=== PATIENT | female | born 1945 | race Caucasian/White ===

== ENCOUNTER 2017-11-16 02:13 | Emergency (ER) | payer BC ==
[~2017-11-16] VITALS: Ht 162.6 cm; Wt 56.2 kg
[2017-11-16 02:37] VITALS: BP 124/46
[2017-11-16] MEDS ORDERED: OXYCODONE W/ ACETAMINOPHEN 5/325MG TABLET PO ONE (07:15)
[2017-11-16] MEDS ORDERED: MORPHINE SULF INJ 2 MG/ML SYRINGE 1ML IM ONE (07:45)
[2017-11-16] MEDS ORDERED: ONDANSETRON ODT 4 MG TAB PO ONE (07:45)
[2017-11-16] MEDS ORDERED: MORPHINE SULFATE 4 MG/ML SYRG IV ONE (08:00)
== END 2017-11-16 08:32 | disposition home or self-care (01) ==
LOC: ER 02:20
DX: M19.012 Primary osteoarthritis, left shoulder (principal); F17.210 Nicotine dependence, cigarettes, uncomplicated
CPT/HCPCS: 73030; 96372; 99284; J2270; Q0162

== ENCOUNTER 2018-08-05 17:59 | Inpatient (IN) | payer BC ==
[~2018-08-05] VITALS: Ht 162.6 cm; Wt 55.5 kg
[2018-08-05 19:25] LABS: Basophils # (auto) 0.1 uL; Eosinophils # (auto) 0.1 uL; Monocytes # (auto) 0.4 uL; Monocytes % (auto) 8.1 % (0.0-12.0); Neutrophils # (auto) 2.5 uL; Platelet Count (auto) 355 10^3/uL (140-450); White Blood Cell 4.6 10^3/uL (4.4-10.8)
[2018-08-05 19:27] LABS: Basophils % (auto) 1.9 % (0.0-2.0); Eosinophils % (auto) 1.8 % (0.0-7.0); Hematocrit 19.2 % (36.0-46.0); Lymphocytes # (auto) 1.5 uL; Mean Corpuscular Hemoglobin 41.4 pg (28.0-32.0); Mean Corpuscular Hgb Conc. 34.2 g/dL (32.0-36.0); Mean Corpuscular Volume 121.2 fL (80.0-100.0); Neutrophils % (auto) 55.2 % (37.0-80.0); Nucleated Red Blood Cells % 0.5 %; Red Blood Cells 1.58 10^6/uL (4.0-5.20)
[2018-08-05 19:30] LABS: INR 1.03 (0.9-1.15); Partial Thromboplastin Time 25.6 sec (23.78-33.04)
[2018-08-05 19:35] LABS: Alanine Aminotransferase 42 U/L (13-56); Albumin 3.4 g/dL (3.4-5.0); Alkaline Phosphatase 65 U/L (45-117); Anion Gap 5 (5-15); Aspartate Aminotransferase 36 U/L (15-37); BUN/Creatinine Ratio 16.2; Bilirubin, Total 0.6 mg/dL (0.2-1.0); Blood Urea Nitrogen 6 mg/dL (7-18); Calcium 8.4 mg/dL (8.5-10.1); Carbon Dioxide 33 mmol/L (21-32); Chloride 101 mmol/L (98-107); GFR African American 220 mL/min; GFR Non-African American 182 mL/min; Glucose 100 mg/dL (74-106); Potassium 4.3 mmol/L (3.5-5.1); Sodium 139 mmol/L (136-145); Total Protein 6.6 g/dL (6.4-8.2)
[2018-08-05 19:38] LABS: Red Cell Distribution Width 26.1 % (11.8-14.3)
[2018-08-05 19:41] LABS: Hemoglobin 6.5 g/dL (12.2-16.2)
[2018-08-05] MEDS ORDERED: HYDR-4683 PO (20:45)
[2018-08-05] MEDS ORDERED: METH-532 PO (20:45)
[2018-08-05] MEDS ORDERED: MULT-927 PO (20:45)
[2018-08-05] MEDS ORDERED: FURO80TA3 PO (20:45)
[2018-08-05] MEDS ORDERED: POTA1TAB61 PO (20:45)
[2018-08-05] MEDS ORDERED: FERR1TAB36 PO (20:45)
[2018-08-05] MEDS ORDERED: FLUT100I IN (20:45)
[2018-08-05] MEDS ORDERED: PANT40TA2 PO (20:45)
[2018-08-05] MEDS: PANTOPRAZOLE 40 MG TAB PO SCH (21:42)
[2018-08-05] MEDS ORDERED: DOCUSATE SOD 100 MG CAP PO PRN (21:45)
[2018-08-05] MEDS ORDERED: ONDANSETRON HCL 4 MG/2 ML VIAL IV PRN (21:45)
[2018-08-05] MEDS ORDERED: ACETAMINOPHEN 325 MG TAB PO PRN (21:45)
[2018-08-05] MEDS ORDERED: TEMAZEPAM 15 MG CAP PO PRN (21:45)
[2018-08-05] MEDS ORDERED: HYDROcodone-ACET 5/325MG TAB PO SCH (22:00)
[2018-08-05 22:02] VITALS: BP 136/58
[2018-08-05 22:22] VITALS: BP 125/56
[2018-08-05 23:00] VITALS: BP_SYST 139; BP_DIAS 62; BP_DIAS 63
[2018-08-05 23:22] VITALS: BP 139/63
[2018-08-05] MEDS: METHOCARBAMOL 500 MG TAB PO SCH (23:40)
[2018-08-06] VITALS (10 sets, daily range): BP systolic 118–144; BP diastolic 42–84
[2018-08-06 00:22] LABS: Urine Bacteria FEW /hpf (None Seen); Urine Blood Negative /uL (Negative); Urine Specific Gravity 1.012 (1.001-1.035); Urine WBC 34 /hpf (0 - 5)
[2018-08-06] MEDS ORDERED: traMADol HCL 50 MG TAB PO ONE (00:45)
[2018-08-06] MEDS ORDERED: ALBUTEROL SULF 2.5 MG/0.5ML(0.5%) NEB SOLN NEB PRN (02:15)
[2018-08-06] MEDS: HYDROcodone-ACET 5/325MG TAB PO PRN ×4 (03:47→20:38)
[2018-08-06] MEDS: METHOCARBAMOL 500 MG TAB PO SCH ×3 (06:26→17:42)
[2018-08-06 06:35] LABS: Basophils # (auto) 0.1 uL; Eosinophils # (auto) 0.1 uL; Hemoglobin 8.7 g/dL (12.2-16.2); Monocytes # (auto) 0.4 uL; Neutrophils # (auto) 2.5 uL; Nucleated Red Blood Cells % 0.1 %
[2018-08-06 06:37] LABS: Basophils % (auto) 1.3 % (0.0-2.0); Eosinophils % (auto) 1.8 % (0.0-7.0); Hematocrit 25.4 % (36.0-46.0); Lymphocytes # (auto) 1.3 uL; Lymphocytes % (auto) 29.7 % (10.0-50.0); Mean Corpuscular Hemoglobin 36.5 pg (28.0-32.0); Mean Corpuscular Hgb Conc. 34.3 g/dL (32.0-36.0); Mean Corpuscular Volume 106.3 fL (80.0-100.0); Monocytes % (auto) 9.9 % (0.0-12.0); Neutrophils % (auto) 57.3 % (37.0-80.0); Platelet Count (auto) 302 10^3/uL (140-450); Red Blood Cells 2.38 10^6/uL (4.0-5.20); White Blood Cell 4.4 10^3/uL (4.4-10.8)
[2018-08-06 06:49] LABS: Red Cell Distribution Width 30.7 % (11.8-14.3)
[2018-08-06 06:52] LABS: Albumin 3.1 g/dL (3.4-5.0); BUN/Creatinine Ratio 20.7; Calcium 7.9 mg/dL (8.5-10.1); Potassium 4.6 mmol/L (3.5-5.1)
[2018-08-06 06:55] LABS: Bilirubin, Total 0.8 mg/dL (0.2-1.0); Total Protein 5.9 g/dL (6.4-8.2)
[2018-08-06] MEDS ORDERED: cefTRIAXone 1GM/10ml IVPUSH 10 ML IV SCH (09:00)
[2018-08-06] MEDS: FERROUS SULFATE 325 MG TAB PO SCH (09:11)
[2018-08-06] MEDS: FUROSEMIDE 40 MG TAB PO SCH (09:12)
[2018-08-06] MEDS: MULTIPLE VITAMINS W/ MINERALS TAB PO SCH (09:13)
[2018-08-06] MEDS: POTASSIUM CHL 10 Meq TABLET PO SCH (09:16)
[2018-08-06] MEDS: PANTOPRAZOLE 40 MG TAB PO SCH ×2 (09:19→22:18)
[2018-08-06] MEDS: FLUTICASONE PROP NASAL SPR 0.05 % (50MCG) 16GM EACHNOSTRI SCH (10:20)
[2018-08-06 12:28] LABS: % Iron Saturation 93.4 % (15-50)
[2018-08-06 17:58] LABS: Hematocrit 25.6 % (36.0-46.0)
[2018-08-06 18:00] LABS: Hemoglobin 8.8 g/dL (12.2-16.2)
[2018-08-07] MEDS: METHOCARBAMOL 500 MG TAB PO SCH ×3 (00:21→12:24)
[2018-08-07] MEDS: HYDROcodone-ACET 5/325MG TAB PO PRN ×3 (02:14→10:04)
[2018-08-07 04:50] VITALS: BP 142/68
[2018-08-07 08:00] VITALS: BP 137/59
[2018-08-07 08:09] LABS: Hematocrit 26.4 % (36.0-46.0)
[2018-08-07] MEDS: FLUTICASONE PROP NASAL SPR 0.05 % (50MCG) 16GM EACHNOSTRI SCH (10:01)
[2018-08-07] MEDS: POTASSIUM CHL 10 Meq TABLET PO SCH (10:02)
[2018-08-07] MEDS: PANTOPRAZOLE 40 MG TAB PO SCH (10:02)
[2018-08-07] MEDS: MULTIPLE VITAMINS W/ MINERALS TAB PO SCH (10:03)
[2018-08-07] MEDS: FERROUS SULFATE 325 MG TAB PO SCH (10:03)
[2018-08-07] MEDS: FUROSEMIDE 40 MG TAB PO SCH (10:04)
[2018-08-07] MEDS ORDERED: PANT40TA2 PO (13:31)
[2018-08-09 10:14] LABS: Folate (Folic Acid) > 24.00 ng/mL (5.38-24)
== END 2018-08-07 15:35 | disposition home or self-care (01) | DRG 812 ==
LOC: ER 18:06 → OVERFLOW 18:07 → CENTRAL 22:55
PROVIDERS: ADMIT Nurse Practitioner; ATTEND Internal Medicine
PROC: 30233N1 Transfusion of Nonautologous Red Blood Cells into Peripheral Vein, Percutaneous Approach (ICD-10-PCS; principal; 2018-08-05)
DX: D64.9 Anemia, unspecified (principal); N39.0 Urinary tract infection, site not specified; F17.210 Nicotine dependence, cigarettes, uncomplicated; F10.10 Alcohol abuse, uncomplicated; J44.9 Chronic obstructive pulmonary disease, unspecified; Z87.442 Personal history of urinary calculi
CPT/HCPCS: 36415; 36430; 71046; 80053; 81001; 82270; 82607; 82746; 82962; 83540; 83550; 83880; 84484; 85014; 85018; 85025; 85610; 85730; 86850; 86900; 86901; 86920; 87086; 93005; 94640; 94761; 96374; 97163; J0696

== ENCOUNTER 2019-01-20 22:53 | Inpatient (IN) | payer BC ==
[~2019-01-20] VITALS: Ht 162.6 cm; Wt 53.0 kg
[~2019-01-20 22:53] MED LIST: FERR1TAB36 PO; FLUT100I IN; FURO80TA3 PO; HYDR-4683 PO; METH-532 PO; MULT-927 PO; PANT40TA2 PO; POTA1TAB61 PO
[2019-01-21] VITALS (11 sets, daily range): BP systolic 116–144; BP diastolic 54–69
[2019-01-21 00:01] LABS: Eosinophils # (auto) 0.1 uL; Lymphocytes # (auto) 1.2 uL; Monocytes # (auto) 0.4 uL; Neutrophils # (auto) 3.7 uL; Nucleated Red Blood Cells % 0.1 %
[2019-01-21 00:02] LABS: Basophils # (auto) 0.1 uL; Eosinophils % (auto) 2.2 % (0.0-7.0); Hematocrit 15.4 % (36.0-46.0); Lymphocytes % (auto) 21.4 % (10.0-50.0); Mean Corpuscular Hemoglobin 37.8 pg (28.0-32.0); Mean Corpuscular Volume 111.2 fL (80.0-100.0); Monocytes % (auto) 7.3 % (0.0-12.0); Neutrophils % (auto) 68.1 % (37.0-80.0); Platelet Count (auto) 264 10^3/uL (140-450); Red Blood Cells 1.38 10^6/uL (4.0-5.20); White Blood Cell 5.4 10^3/uL (4.4-10.8)
[2019-01-21 00:05] LABS: Red Cell Distribution Width 28.6 % (11.8-14.3)
[2019-01-21 00:06] LABS: Hemoglobin 5.2 g/dL (12.2-16.2)
[2019-01-21 00:18] LABS: Alanine Aminotransferase 18 U/L (13-56); Albumin 2.9 g/dL (3.4-5.0); Anion Gap 5 (5-15); Aspartate Aminotransferase 17 U/L (15-37); BUN/Creatinine Ratio 24.2; Blood Urea Nitrogen 8 mg/dL (7-18); Calcium 7.9 mg/dL (8.5-10.1); Carbon Dioxide 31 mmol/L (21-32); Chloride 103 mmol/L (98-107); GFR African American 251 mL/min; GFR Non-African American 207 mL/min; Glucose 106 mg/dL (74-106); Magnesium 1.8 mg/dL (1.6-2.6); Sodium 139 mmol/L (136-145)
[2019-01-21 00:22] LABS: INR 1.02 (0.9-1.15); Partial Thromboplastin Time 23.8 sec (23.78-33.04); Prothrombin Time 10.9 sec (9.27-12.13)
[2019-01-21 00:23] LABS: Alkaline Phosphatase 80 U/L (45-117); Bilirubin, Total 0.5 mg/dL (0.2-1.0)
[2019-01-21] MEDS ORDERED: HYDROcodone-ACET 7.5/325MG TAB PO ONE (02:45)
[2019-01-21] MEDS ORDERED: METHOCARBAMOL 500 MG TAB PO ONE (02:45)
[2019-01-21 06:32] LABS: Urine Bacteria MOD /hpf (None Seen); Urine Blood Negative /uL (Negative); Urine Specific Gravity 1.013 (1.001-1.035); Urine WBC 32 /hpf (0 - 5)
[2019-01-21] MEDS ORDERED: HYDROcodone-ACET 5/325MG TAB PO PRN (07:15)
[2019-01-21] MEDS ORDERED: ACETAMINOPHEN 325 MG TAB PO PRN (07:15)
[2019-01-21] MEDS ORDERED: ONDANSETRON HCL 4 MG/2 ML VIAL IV PRN (07:15)
[2019-01-21] MEDS ORDERED: PANTOPRAZOLE 40 MG TAB PO SCH (10:00)
[2019-01-21] MEDS ORDERED: FUROSEMIDE 40 MG TAB PO SCH (10:00)
[2019-01-21 10:14] LABS: Hematocrit 24.7 % (36.0-46.0); Hemoglobin 8.5 g/dL (12.2-16.2)
[2019-01-21 10:30] LABS: % Iron Saturation 102.6 % (15-50)
--- NOTE | 2019-01-21 10:30 | NUR ---
MS admit from ER MANAN FRIAS admitted to tele/MS after SBAR received. Patient oriented to [place], primary RN, unit, room, bed, and unit policies regarding patient care and visiting hours. Patient weighed by bedscale and placed on O2 at 4L/min via nasal cannula. Encouraged to call if they need something. All questions and concerns addressed, patient verbalized understanding.
--- NOTE | 2019-01-21 12:18 | NUR ---
chaperoned Dr. Aranda into pts room
--- NOTE | 2019-01-21 15:36 | NUR ---
Discharge instructions given as ordered. Encourage to follow up with PMD as instructed. All questions and concerns addressed. Patient verbalized understanding. IV removed with catheter intact, pressure dressing applied. Patient taken to vehicle via wheelchair with all personal belongings, accompanied by staff and family member. No distress noted at time of departure.
== END 2019-01-21 15:43 | disposition home or self-care (01) | DRG 812 ==
LOC: ER 22:57 → OVERFLOW 01-21 07:20 → WEST WING 01-21 10:37
PROVIDERS: ADMIT Nurse Practitioner; ATTEND Family Medicine
PROC: 30233N1 Transfusion of Nonautologous Red Blood Cells into Peripheral Vein, Percutaneous Approach (ICD-10-PCS; principal; 2019-01-21)
DX: D64.9 Anemia, unspecified (principal); F17.210 Nicotine dependence, cigarettes, uncomplicated; I11.0 Hypertensive heart disease with heart failure; I50.9 Heart failure, unspecified; I70.0 Atherosclerosis of aorta; J44.9 Chronic obstructive pulmonary disease, unspecified; Z87.442 Personal history of urinary calculi; Z99.81 Dependence on supplemental oxygen; Z72.89 Other problems related to lifestyle; Z82.5 Family history of asthma and other chronic lower respiratory diseases; Z82.49 Family history of ischemic heart disease and other diseases of the circulatory system
CPT/HCPCS: 36415; 80053; 81001; 83540; 83550; 83735; 84484; 85014; 85018; 85025; 85610; 85730; 86850; 86900; 86901; 86920; 93005; G0378

== ENCOUNTER 2019-02-16 19:37 | Emergency (ER) | payer BC ==
[~2019-02-16] VITALS: Ht 165.1 cm; Wt 54.4 kg
[2019-02-16 22:29] LABS: Basophils # (auto) 0.1 uL; Eosinophils # (auto) 0.1 uL; Hematocrit 18.5 % (36.0-46.0); Mean Corpuscular Hgb Conc. 33.3 g/dL (32.0-36.0); Monocytes # (auto) 0.3 uL; Red Blood Cells 1.72 10^6/uL (4.0-5.20); White Blood Cell 4.1 10^3/uL (4.4-10.8)
[2019-02-16 22:32] LABS: Basophils % (auto) 1.8 % (0.0-2.0); Eosinophils % (auto) 2.7 % (0.0-7.0); Lymphocytes # (auto) 1.6 uL; Lymphocytes % (auto) 38.3 % (10.0-50.0); Mean Corpuscular Hemoglobin 35.8 pg (28.0-32.0); Mean Corpuscular Volume 107.4 fL (80.0-100.0); Monocytes % (auto) 7.8 % (0.0-12.0); Neutrophils % (auto) 49.4 % (37.0-80.0); Nucleated Red Blood Cells % 0.4 %; Platelet Count (auto) 440 10^3/uL (140-450)
[2019-02-16 22:33] LABS: Red Cell Distribution Width 29.1 % (11.8-14.3)
[2019-02-16 22:34] LABS: Hemoglobin 6.2 g/dL (12.2-16.2)
[2019-02-16 22:38] LABS: INR 1.05 (0.9-1.15); Partial Thromboplastin Time 27.8 sec (23.78-33.04); Prothrombin Time 11.2 sec (9.27-12.13)
[2019-02-16 22:41] LABS: Calcium 8.2 mg/dL (8.5-10.1); Chloride 100 mmol/L (98-107); Sodium 142 mmol/L (136-145)
[2019-02-16 22:44] LABS: Albumin 3.1 g/dL (3.4-5.0); Anion Gap 7 (5-15); BUN/Creatinine Ratio 22.2; Blood Urea Nitrogen 10 mg/dL (7-18); Carbon Dioxide 35 mmol/L (21-32); GFR African American 175 mL/min; GFR Non-African American 145 mL/min; Glucose 86 mg/dL (74-106); Magnesium 1.7 mg/dL (1.6-2.6)
[2019-02-16 22:49] LABS: Alanine Aminotransferase 22 U/L (13-56); Alkaline Phosphatase 82 U/L (45-117); Aspartate Aminotransferase 24 U/L (15-37); Bilirubin, Total 0.5 mg/dL (0.2-1.0); Total Protein 6.3 g/dL (6.4-8.2)
[2019-02-17] VITALS (12 sets, daily range): BP systolic 121–142; BP diastolic 50–76
[2019-02-17 10:27] LABS: Basophils # (auto) 0 uL; Eosinophils # (auto) 0.1 uL; Eosinophils % (auto) 1.4 % (0.0-7.0); Hematocrit 29.8 % (36.0-46.0); Lymphocytes # (auto) 0.9 uL; Lymphocytes % (auto) 21.4 % (10.0-50.0); Mean Corpuscular Hemoglobin 31.7 pg (28.0-32.0); Mean Corpuscular Hgb Conc. 33.4 g/dL (32.0-36.0); Monocytes # (auto) 0.4 uL; Neutrophils # (auto) 2.8 uL; Neutrophils % (auto) 66.2 % (37.0-80.0); Nucleated Red Blood Cells % 0.2 %; Platelet Count (auto) 344 10^3/uL (140-450); Red Blood Cells 3.14 10^6/uL (4.0-5.20); White Blood Cell 4.3 10^3/uL (4.4-10.8)
[2019-02-17 10:55] LABS: Red Cell Distribution Width 25.9 % (11.8-14.3)
== END 2019-02-17 12:14 | disposition home or self-care (01) ==
LOC: ER 19:38
DX: D64.9 Anemia, unspecified (principal); R53.1 Weakness; J44.9 Chronic obstructive pulmonary disease, unspecified; F17.210 Nicotine dependence, cigarettes, uncomplicated; Z87.442 Personal history of urinary calculi
CPT/HCPCS: 36415; 36430; 80053; 83735; 83880; 84484; 85025; 85610; 85730; 86850; 86900; 86901; 86920; 99285; J7030; P9016

== ENCOUNTER → 2019-05-31 | Outpatient (CLI) | payer BC ==
[~2019-05-31] MED LIST changes: +FERR140T3 PO; +FOLI1TAB6 PO
[2019-05-31 08:56] LABS: Basophils # (auto) 0.1 uL; Eosinophils # (auto) 0.1 uL; Eosinophils % (auto) 2.4 % (0.0-7.0); Mean Corpuscular Hgb Conc. 31.8 g/dL (32.0-36.0); Monocytes # (auto) 0.4 uL; Neutrophils # (auto) 2.6 uL; White Blood Cell 4.2 10^3/uL (4.4-10.8)
[2019-05-31 08:57] LABS: Basophils % (auto) 1.9 % (0.0-2.0); Hematocrit 19.1 % (36.0-46.0); Lymphocytes # (auto) 1.1 uL; Lymphocytes % (auto) 25.5 % (10.0-50.0); Mean Corpuscular Hemoglobin 35.4 pg (28.0-32.0); Mean Corpuscular Volume 111.5 fL (80.0-100.0); Neutrophils % (auto) 61.2 % (37.0-80.0); Nucleated Red Blood Cells % 0.2 %; Platelet Count (auto) 356 10^3/uL (140-450); Red Blood Cells 1.71 10^6/uL (4.0-5.20)
[2019-05-31 09:05] LABS: Hemoglobin 6.1 g/dL (12.2-16.2); Red Cell Distribution Width 30.8 % (11.8-14.3)
[2019-05-31 09:16] LABS: Anion Gap 9 (5-15); Blood Urea Nitrogen 10 mg/dL (7-18); Carbon Dioxide 40 mmol/L (21-32); Chloride 92 mmol/L (98-107); GFR African American 220 mL/min; Glucose 129 mg/dL (74-106); Potassium 4.1 mmol/L (3.5-5.1); Sodium 141 mmol/L (136-145)
[2019-05-31 09:17] LABS: Alanine Aminotransferase 20 U/L (13-56); Albumin 3.5 g/dL (3.4-5.0); Aspartate Aminotransferase 22 U/L (15-37); Calcium 8.7 mg/dL (8.5-10.1); GFR Non-African American 181 mL/min
[2019-05-31 09:19] LABS: Alkaline Phosphatase 71 U/L (45-117); Bilirubin, Total 0.9 mg/dL (0.2-1.0)
[2019-05-31 09:26] LABS: Ferritin > 1650.0 ng/mL (10-322)
[2019-05-31 09:27] LABS: Folate (Folic Acid) > 24.00 ng/mL (5.38-24)
[2019-05-31 09:30] LABS: % Iron Saturation 95.3 % (15-50)
== END | disposition home or self-care (01) ==
LOC: LAB 08:37
PROVIDERS: ATTEND Internal Medicine
DX: D50.8 Other iron deficiency anemias (principal)
CPT/HCPCS: 36415; 80053; 82607; 82728; 82746; 83540; 83550; 85025

== ENCOUNTER 2019-07-04 11:29 | Inpatient (IN) | payer BC ==
[~2019-07-04] VITALS: Ht 165.1 cm; Wt 52.0 kg
[2019-07-04] VITALS (7 sets, daily range): BP systolic 105–115; BP diastolic 42–61
[~2019-07-04 11:29] MED LIST changes: -FERR1TAB36 PO; -HYDR-4683 PO; +HYDR-4833 PO
[2019-07-04 12:36] LABS: Basophils # (auto) 0.1 uL; Basophils % (auto) 1.3 % (0.0-2.0); Monocytes # (auto) 0.4 uL; Neutrophils # (auto) 2.7 uL; White Blood Cell 4.3 10^3/uL (4.4-10.8)
[2019-07-04 12:39] LABS: Eosinophils # (auto) 0 uL; Hematocrit 16.7 % (36.0-46.0); Lymphocytes # (auto) 1.2 uL; Lymphocytes % (auto) 27.4 % (10.0-50.0); Mean Corpuscular Hemoglobin 34.3 pg (28.0-32.0); Mean Corpuscular Hgb Conc. 33.6 g/dL (32.0-36.0); Mean Corpuscular Volume 101.9 fL (80.0-100.0); Monocytes % (auto) 8.4 % (0.0-12.0); Neutrophils % (auto) 61.9 % (37.0-80.0); Nucleated Red Blood Cells % 0.4 %; Platelet Count (auto) 314 10^3/uL (140-450); Red Blood Cells 1.64 10^6/uL (4.0-5.20)
[2019-07-04 12:49] LABS: Alanine Aminotransferase 14 U/L (13-56); Albumin 3.1 g/dL (3.4-5.0); Anion Gap 7 (5-15); Aspartate Aminotransferase 20 U/L (15-37); BUN/Creatinine Ratio 20.6; Blood Urea Nitrogen 7 mg/dL (7-18); Calcium 8.4 mg/dL (8.5-10.1); Carbon Dioxide 37 mmol/L (21-32); Chloride 95 mmol/L (98-107); GFR African American 242 mL/min; GFR Non-African American 200 mL/min; Glucose 118 mg/dL (74-106); Potassium 3.9 mmol/L (3.5-5.1); Sodium 139 mmol/L (136-145)
[2019-07-04 12:54] LABS: Alkaline Phosphatase 88 U/L (45-117); Bilirubin, Total 0.5 mg/dL (0.2-1.0)
[2019-07-04 13:13] LABS: Hemoglobin 5.6 g/dL (12.2-16.2); Red Cell Distribution Width 28.9 % (11.8-14.3)
[2019-07-04] MEDS ORDERED: NITROGLYCERIN 0.4 MG SL TAB SL PRN (13:30)
[2019-07-04] MEDS ORDERED: MORPHINE SULF INJ 2 MG/ML SYRINGE 1ML IV PRN ×2 (13:30)
[2019-07-04] MEDS ORDERED: ONDANSETRON HCL 4 MG/2 ML VIAL IV PRN (13:30)
[2019-07-04] MEDS ORDERED: FUROSEMIDE 20 MG/2 ML VIAL IV ONE (13:45)
[2019-07-04] MEDS: FOLIC ACID 1 MG TAB PO SCH (14:15)
[2019-07-04] MEDS: HYDROcodone-ACET 5/325MG TAB PO PRN ×2 (15:01→21:16)
[2019-07-04 15:50] LABS: Urine Bacteria FEW /hpf (None Seen); Urine Blood Negative /uL (Negative); Urine Specific Gravity 1.011 (1.001-1.035); Urine WBC 19 /hpf (0 - 5)
[2019-07-04] MEDS: Ensure Enlive Strawberry 8oz Bottle PO SCH (18:00)
[2019-07-04] MEDS: BUDESONIDE (INHALATION) 0.5 MG/2 ML NEB NEB SCH (19:07)
[2019-07-04] MEDS: ALBUTEROL SULF 2.5 MG/0.5ML(0.5%) NEB SOLN NEB PRN (19:07)
[2019-07-04] MEDS: IPRATROPIUM BROM 0.5 MG/2.5ML INH SOL NEB PRN (19:07)
[2019-07-04] MEDS: PANTOPRAZOLE 40 MG TAB PO SCH (21:15)
[2019-07-04] MEDS ORDERED: HYDROcodone-ACET 5/325MG TAB PO PRN (22:00)
[2019-07-05 01:19] VITALS: BP 112/61
[2019-07-05 05:00] VITALS: BP 128/84
[2019-07-05] MEDS: ALBUTEROL SULF 2.5 MG/0.5ML(0.5%) NEB SOLN NEB PRN (05:46)
[2019-07-05] MEDS: IPRATROPIUM BROM 0.5 MG/2.5ML INH SOL NEB PRN (05:46)
[2019-07-05] MEDS: BUDESONIDE (INHALATION) 0.5 MG/2 ML NEB NEB SCH (05:46)
[2019-07-05 06:42] LABS: Basophils # (auto) 0 uL; Basophils % (auto) 0.7 % (0.0-2.0); Eosinophils # (auto) 0.1 uL; Hemoglobin 8.6 g/dL (12.2-16.2); Lymphocytes # (auto) 1.3 uL; Lymphocytes % (auto) 24.4 % (10.0-50.0); Mean Corpuscular Hemoglobin 31.1 pg (28.0-32.0); Mean Corpuscular Volume 94.2 fL (80.0-100.0); Monocytes # (auto) 0.5 uL; Monocytes % (auto) 9.9 % (0.0-12.0); Neutrophils # (auto) 3.5 uL; Nucleated Red Blood Cells % 0.3 %; Platelet Count (auto) 297 10^3/uL (140-450); Red Blood Cells 2.76 10^6/uL (4.0-5.20); White Blood Cell 5.5 10^3/uL (4.4-10.8)
[2019-07-05 06:48] LABS: Red Cell Distribution Width 26.6 % (11.8-14.3)
[2019-07-05 07:04] LABS: INR 1.01 (0.9-1.15); Partial Thromboplastin Time 28.9 sec (23.64-32.05)
[2019-07-05 07:09] LABS: Albumin 2.9 g/dL (3.4-5.0); BUN/Creatinine Ratio 25.8; Calcium 8.4 mg/dL (8.5-10.1)
[2019-07-05 07:12] LABS: Bilirubin, Total 0.6 mg/dL (0.2-1.0); Total Protein 6.1 g/dL (6.4-8.2)
[2019-07-05] MEDS: FOLIC ACID 1 MG TAB PO SCH (08:31)
[2019-07-05] MEDS: PANTOPRAZOLE 40 MG TAB PO SCH (08:31)
[2019-07-05] MEDS: Ensure Enlive Strawberry 8oz Bottle PO SCH ×2 (08:31→12:36)
[2019-07-05] MEDS: HYDROcodone-ACET 5/325MG TAB PO PRN ×2 (08:31→15:14)
[2019-07-05 09:00] VITALS: BP 103/53
[2019-07-05] MEDS ORDERED: FERROUS SULFATE 50 MG PO SCH (10:00)
[2019-07-05 13:15] LABS: % Iron Saturation 98.7 % (15-50)
[2019-07-05 13:20] VITALS: BP 114/50
[2019-07-05 16:59] VITALS: BP 119/61
== END 2019-07-05 18:05 | disposition hospice, home (50) | DRG 812 ==
LOC: ER 11:36 → TELE 11:37 → TELE-WESTW 18:39
PROVIDERS: ADMIT Nurse Practitioner Acute Care; ATTEND Family Medicine
PROC: 30233N1 Transfusion of Nonautologous Red Blood Cells into Peripheral Vein, Percutaneous Approach (ICD-10-PCS; principal; 2019-07-04)
DX: D64.9 Anemia, unspecified (principal); J96.10 Chronic respiratory failure, unspecified whether with hypoxia or hypercapnia; E44.1 Mild protein-calorie malnutrition; Z68.1 Body mass index [BMI] 19.9 or less, adult; J44.9 Chronic obstructive pulmonary disease, unspecified; K21.9 Gastro-esophageal reflux disease without esophagitis; I73.9 Peripheral vascular disease, unspecified; E78.00 Pure hypercholesterolemia, unspecified; E78.5 Hyperlipidemia, unspecified; F17.210 Nicotine dependence, cigarettes, uncomplicated; G89.29 Other chronic pain; I11.0 Hypertensive heart disease with heart failure; M54.5 Low back pain; I50.9 Heart failure, unspecified; Z82.49 Family history of ischemic heart disease and other diseases of the circulatory system; Z82.5 Family history of asthma and other chronic lower respiratory diseases; Z87.11 Personal history of peptic ulcer disease; Z87.442 Personal history of urinary calculi
CPT/HCPCS: 36415; 36430; 51702; 71045; 76604; 80053; 81001; 83010; 83540; 83550; 83615; 83880; 84484; 85025; 85045; 85610; 85730; 86850; 86900; 86901; 86920; 93005; 94640; 94761; 96374; G0378

== ENCOUNTER 2019-08-19 06:59 | Inpatient (IN) | payer BC ==
[2019-08-19] VITALS (8 sets, daily range): BP systolic 104–133; BP diastolic 47–61
[~2019-08-19] VITALS: Ht 165.1 cm; Wt 52.1 kg
[2019-08-19 08:27] LABS: Eosinophils # (auto) 0.1 uL; Monocytes # (auto) 0.4 uL; White Blood Cell 4.1 10^3/uL (4.4-10.8)
[2019-08-19 08:29] LABS: Basophils # (auto) 0.1 uL; Basophils % (auto) 1.7 % (0.0-2.0); Eosinophils % (auto) 2.3 % (0.0-7.0); Hematocrit 16.2 % (36.0-46.0); Lymphocytes # (auto) 1.1 uL; Lymphocytes % (auto) 26.2 % (10.0-50.0); Mean Corpuscular Hemoglobin 33.2 pg (28.0-32.0); Mean Corpuscular Hgb Conc. 32.9 g/dL (32.0-36.0); Monocytes % (auto) 10.8 % (0.0-12.0); Neutrophils # (auto) 2.4 uL; Nucleated Red Blood Cells % 0.4 %; Platelet Count (auto) 376 10^3/uL (140-450)
[2019-08-19 08:32] LABS: Hemoglobin 5.3 g/dL (12.2-16.2)
[2019-08-19 08:51] LABS: Albumin 3.6 g/dL (3.4-5.0); Calcium 8.5 mg/dL (8.5-10.1); Potassium 3.8 mmol/L (3.5-5.1)
[2019-08-19 08:55] LABS: BUN/Creatinine Ratio 29.3; Bilirubin, Total 0.6 mg/dL (0.2-1.0); Total Protein 7.2 g/dL (6.4-8.2)
[2019-08-19] MEDS ORDERED: MORPHINE SULF INJ 2 MG/ML SYRINGE 1ML IV ONE (09:15)
[2019-08-19] MEDS ORDERED: MORPHINE SULF INJ 2 MG/ML SYRINGE 1ML IV PRN (11:00)
[2019-08-19] MEDS ORDERED: NITROGLYCERIN 0.4 MG SL TAB SL PRN (11:00)
[2019-08-19] MEDS ORDERED: ACETAMINOPHEN 500 MG TAB PO PRN (11:00)
[2019-08-19] MEDS ORDERED: ONDANSETRON HCL 4 MG/2 ML VIAL IV PRN (11:00)
[2019-08-19] MEDS ORDERED: FUROSEMIDE 20 MG/2 ML VIAL IV ONE (11:30)
[2019-08-19 11:56] LABS: Urine Bacteria NONE SEEN /hpf (None Seen); Urine Blood Negative /uL (Negative); Urine Specific Gravity 1.016 (1.001-1.035); Urine WBC 7 /hpf (0 - 5)
--- NOTE | 2019-08-19 13:30 | NUR ---
WOUND CARE PHOTOS TAKEN PAPERS IN CHART.
--- NOTE | 2019-08-19 14:00 | NUR ---
RECEIVED A CALL FROM [facility] THAT PATIENT HAS CONVERTED TO A FIB. HOSPITALIST PAGED (MERARI HERMAN) AND EKG DONE.
[2019-08-19] MEDS: CLINDAMYCIN 300MG IV 50 ML IV SCH ×2 (14:28→21:27)
--- NOTE | 2019-08-19 14:30 | NUR ---
RECEIVED REPORT FROM CHINMAY MONTIEL. WILL AWAIT PATIENT.
--- NOTE | 2019-08-19 15:00 | NUR ---
SPOKE TO MERARI HERMAN, EKG READ SR WITH BBB 86 HR PER MERARI NOTHING TO WORRY ABOUT UNLESS THE HR IS OVER 110. PATIENT IS ASYMPTOMATIC AT THIS TIME NO DISTRESS NOTED. WILL CONTINUE TO MONITOR.
--- NOTE | 2019-08-19 15:15 | NUR ---
BLOOD TRANSFUSION ENDED. VS DOCUMENTED IN SPREAD SHEET.
--- NOTE | 2019-08-19 15:30 | NUR ---
ADMINISTERED LASIX LATE PER CHINMAY FALAFEL CART COOK GIVE LASIX AFTER BLOOD TRANSFUSION.
[2019-08-19] MEDS ORDERED: FLUT250M2 INH (15:38)
[2019-08-19] MEDS ORDERED: SULF400I3 PO (15:38)
[2019-08-19] MEDS ORDERED: MORP15TA PO (15:38)
[2019-08-19] MEDS ORDERED: THIA100T10 PO (15:38)
[2019-08-19] MEDS ORDERED: CLOP75TA41 PO (15:38)
--- NOTE | 2019-08-19 16:25 | NUR ---
PATIENT RECEIVED TO THE FLOOR, AWAKE ALERT AND ORIENTED. PATIENT CURRENTLY HAS BLOOD TRANSFUSING, AND IS TOLERATING WELL. INSTRUCTED THE PATIENT ON THE PLAN OF CARE AND HOW TO USE CALL LIGHT. BED LOCKED IN LOWEST POSITION WITH TWO SIDE RAILS UP AND CALL LIGHT IN REACH.
[2019-08-19] MEDS: ALBUTEROL SULF 2.5 MG/0.5ML(0.5%) NEB SOLN NEB PRN (19:14)
[2019-08-19] MEDS: IPRATROPIUM BROM 0.5 MG/2.5ML INH SOL NEB PRN (19:14)
--- NOTE | 2019-08-19 19:30 | NUR ---
Opening Shift Note Assumed care of patient, awake and alertx4. ATKA. Oxygen @ 5L via NC. No SOB noted at this time. No S/S of distress . Instructed on POC and to call for assist PRN, will continue to monitor for changes Q1hr and PRN.
[2019-08-19] MEDS: MORPHINE SULF INJ 2 MG/ML SYRINGE 1ML IV PRN (20:35)
[2019-08-19] MEDS: PANTOPRAZOLE 40 MG TAB PO SCH (21:22)
[2019-08-19] MEDS: MORPHINE SULF 15mg ER tab PO SCH ×2 (21:22→22:00)
[2019-08-19] MEDS: HYDROcodone-ACET 5/325MG TAB PO SCH (21:23)
[2019-08-20] VITALS (13 sets, daily range): BP systolic 104–118; BP diastolic 44–71
[2019-08-20] MEDS: MORPHINE SULF INJ 2 MG/ML SYRINGE 1ML IV PRN ×2 (03:07→18:16)
[2019-08-20] MEDS: HYDROcodone-ACET 5/325MG TAB PO PRN ×2 (04:09→13:54)
--- NOTE | 2019-08-20 04:30 | NUR ---
Patient was requesting a breathing treatment. Paged RT. Saturation is 100% on 5 l nc. No distress noted. Complaining of pain throughout night. Had refused her scheduled morphine last night and only took her norco. Decaf coffee brought to patient a few times through out night per her request. Waiting on lab to come draw patient to check Hgb. Asymptomatic.
[2019-08-20] MEDS: ALBUTEROL SULF 2.5 MG/0.5ML(0.5%) NEB SOLN NEB PRN ×4 (04:43→19:42)
[2019-08-20] MEDS: IPRATROPIUM BROM 0.5 MG/2.5ML INH SOL NEB PRN ×4 (04:43→19:42)
[2019-08-20 06:04] LABS: Basophils # (auto) 0 uL; Eosinophils # (auto) 0.1 uL; Monocytes # (auto) 0.3 uL; Platelet Count (auto) 371 10^3/uL (140-450); White Blood Cell 3.9 10^3/uL (4.4-10.8)
[2019-08-20 06:08] LABS: Basophils % (auto) 1.2 % (0.0-2.0); Eosinophils % (auto) 1.9 % (0.0-7.0); Hematocrit 18.8 % (36.0-46.0); Lymphocytes # (auto) 1.1 uL; Mean Corpuscular Hemoglobin 32.9 pg (28.0-32.0); Mean Corpuscular Hgb Conc. 34.7 g/dL (32.0-36.0); Mean Corpuscular Volume 94.9 fL (80.0-100.0); Monocytes % (auto) 8.3 % (0.0-12.0); Neutrophils # (auto) 2.3 uL; Neutrophils % (auto) 59.6 % (37.0-80.0); Nucleated Red Blood Cells % 0.8 %; Red Blood Cells 1.99 10^6/uL (4.0-5.20)
[2019-08-20 06:11] LABS: Red Cell Distribution Width 27.1 % (11.8-14.3)
[2019-08-20 06:14] LABS: Hemoglobin 6.5 g/dL (12.2-16.2)
--- NOTE | 2019-08-20 06:19 | NUR ---
Lab called and notified me of Hgb 6.5. Paged hospitalist. Awaiting return phone call.Patient reading in bed. No distress noted.
[2019-08-20] MEDS: CLINDAMYCIN 300MG IV 50 ML IV SCH ×3 (06:21→22:07)
[2019-08-20 06:39] LABS: Calcium 8.4 mg/dL (8.5-10.1); Potassium 4.2 mmol/L (3.5-5.1)
[2019-08-20 06:41] LABS: BUN/Creatinine Ratio 23.3
--- NOTE | 2019-08-20 06:59 | NUR ---
New order to administer PRBC's. Will endorse to day shift.
--- NOTE | 2019-08-20 08:09 | NUR ---
RECEIVED REPORT FROM JUANY ANGUIANO
--- NOTE | 2019-08-20 08:15 | NUR ---
SPOKE WITH BRITTANY IN BLOOD BANK REGARDING ORDER STATUS CHANGED TO COMPLETE FOR NEW ORDER OF PRBCS BY ER ROYA GRANADO. PER BRITTANY, IN ORDER FOR HER TO GIVE UNIT, ORDER MUST BE CHANGED TO COMPLETE FOR HER TO DISPENSE BLOOD TO FLOOR. VERIFIED WITH BIOMEDICAL EQUIPMENT TECH CHRIS, PER DULCE MARIA ORDER SHOULD BE ACTIVE OR IN PROCESS.
--- NOTE | 2019-08-20 08:30 | NUR ---
Opening Shift Note Assumed care of patient, awake and alert. No S/S of distress/SOB or pain. Instructed on POC and to call for assist PRN, will continue to monitor. Bed locked in the lowest position. Bed rails up x2. Call light in reach.
--- NOTE | 2019-08-20 09:08 | NUR ---
ORDER CLARIFICATION SPOKE WITH MERARI HERMAN. RN MEDICAL SURGICAL AWARE OF PRBC ORDER STATUS CHANGED TO COMPLETE BY BLOOD BANK. PER RN MEDICAL SURGICAL, GIVE UNIT.
[2019-08-20] MEDS: FOLIC ACID 1 MG TAB PO SCH (09:46)
[2019-08-20] MEDS: MORPHINE SULF 15mg ER tab PO SCH ×2 (09:46→22:08)
[2019-08-20] MEDS: HYDROcodone-ACET 5/325MG TAB PO SCH (09:47)
[2019-08-20] MEDS: PANTOPRAZOLE 40 MG TAB PO SCH ×2 (09:47→22:08)
[2019-08-20] MEDS: FUROSEMIDE 20 MG/2 ML VIAL IV SCH (09:47)
[2019-08-20] MEDS: ASPirin 81 mg TAB PO SCH (11:13)
[2019-08-20] MEDS: LACTULOSE 20Gm/30ML SOLN PO PRN ×2 (11:14→18:11)
--- NOTE | 2019-08-20 11:30 | NUR ---
WOUND CARE NOTE: IN TO SEE PATIENT AT THIS TIME PER WOUND CARE CONSULT REQUEST. PATIENT WAS ADMITTED TO [facility] WITH DIAGNOSIS OF ANEMIA. CURRENT MAIN SCORE IS 17. SHE IS CURRENTLY A HOSPICE PATIENT. PATIENT IS COMFORT MEASURES ONLY. SHE WAS NOTED TO HAVE WOUNDS UPON ADMIT. WOUNDS WERE PHOTOGRAPHED AT THAT TIME BY BEDSIDE NURSE FOR REFERENCE, WOUND CONSULT ORDERED. PATIENT IS NOTED TO HAVE A SMALL STAGE 3 PRESSURE ULCER TO THE SACRUM, AND A STASIS ULCER TO THE LEFT POSTERIOR CALF. PATIENT IS AWARE OF HER WOUNDS. CLEANSED WOUNDS WITH WOUND CLEANSER, PATTED DRY WITH STERILE GAUZE. APPLIED THERAHONEY TO BOTH WOUNDS, COVERING WITH OPTIFOAM GENTLE DRESSINGS. SPECIALTY AIR MATTRESS ORDERED. PATIENT TO BE PLACED, PENDING DELIVERY BY SCRIBNER MARGOT. RECOMMEND: FREQUENT TURN SCHEDULE Q 2 HOURS, PRN CONDITION PERMITS, WITH PRESSURE REDISTRIBUTION USING PILLOWS/WEDGES, DAILY/PRN DRESSING CHANGE TO SACRAL ULCER, Q 3 DAY/PRN DRESSING CHANGE TO STASIS ULCER TO LEFT CALF, SPECIALTY AIR MATTRESS, DIETARY CONSULT, SKIN/WOUND CARE PLAN, CONTINUED MONITORING BY WOUND CARE TEAM. Addendum: 08/20/19 at 9 by Daniela Hughes RN Amended: Links added.
--- NOTE | 2019-08-20 12:00 | NUR ---
CODE STATUS MD AT THE BEDSIDE SPEAKING WITH PATIENT ABOUT CODE STATUS. CODE STATUS FORM FILLED OUT BY DR. WHEELER AND PLACED IN CHART.
--- NOTE | 2019-08-20 14:50 | NUR ---
SPOKE WITH MD SPOKE WITH DR. HAND. MD AWARE THAT PATIENT HAS BEEN RUNNING SINUS RHYTHM WITH BBB AND ST DEPRESSION WITH RUNS OF A. FIB WITH RVR. NEW ORDER RECEIVED. ORDER READ BACK AND VERIFIED.
[2019-08-20 15:19] LABS: Hematocrit 22.2 % (36.0-46.0); Hemoglobin 7.9 g/dL (12.2-16.2)
--- NOTE | 2019-08-20 19:05 | NUR ---
Closing Note Patient is awake and alert. No S/S of distress/SOB or pain. Bed locked in the lowest position. Bed rails up x2. Call light in reach. Sitter at the bedside for safety. Endorsed care to night nurse.
--- NOTE | 2019-08-20 19:30 | NUR ---
Opening Shift Note Assumed care of patient, awake and alert. Seems to be anxious about wanting to go home. Wants to do EGD outpatient. Wants to be discharged in am, daughter and grandson lives with her. Instructed on POC and to call for assist PRN, will continue to monitor for changes Q1hr and PRN.
[2019-08-20] MEDS: AMIODARONE HCL 200 MG TAB PO SCH (22:08)
[2019-08-21] VITALS (7 sets, daily range): BP systolic 117–147; BP diastolic 54–63
[2019-08-21] MEDS: MORPHINE SULF INJ 2 MG/ML SYRINGE 1ML IV PRN ×3 (00:36→16:51)
[2019-08-21] MEDS: CLINDAMYCIN 300MG IV 50 ML IV SCH ×3 (06:00→23:10)
[2019-08-21] MEDS: HYDROcodone-ACET 5/325MG TAB PO PRN (06:30)
--- NOTE | 2019-08-21 06:30 | NUR ---
Patient asked me to help her write down a few questions she wanted to ask MD when he seen her today. She didnt want to forget. Still wanting to be discharged today and do EGD outpatient. Patient says she has help at home from daughter and grandson and she can get around with her walker fine with her home O2. Wrote down her questions and brought her coffee per her request. Wound dressing to her left calf clean dry and intact.
[2019-08-21] MEDS: ALBUTEROL SULF 2.5 MG/0.5ML(0.5%) NEB SOLN NEB PRN (06:42)
[2019-08-21] MEDS: IPRATROPIUM BROM 0.5 MG/2.5ML INH SOL NEB PRN (06:42)
[2019-08-21 07:17] LABS: Basophils # (auto) 0 uL; Eosinophils # (auto) 0.1 uL; Hemoglobin 7.8 g/dL (12.2-16.2); Lymphocytes # (auto) 1.4 uL; Monocytes # (auto) 0.4 uL; White Blood Cell 3.6 10^3/uL (4.4-10.8)
[2019-08-21 07:21] LABS: Basophils % (auto) 0.7 % (0.0-2.0); Eosinophils % (auto) 4.1 % (0.0-7.0); Hematocrit 21.8 % (36.0-46.0); Lymphocytes % (auto) 38.9 % (10.0-50.0); Mean Corpuscular Hemoglobin 33.5 pg (28.0-32.0); Mean Corpuscular Hgb Conc. 35.8 g/dL (32.0-36.0); Mean Corpuscular Volume 93.7 fL (80.0-100.0); Monocytes % (auto) 10.5 % (0.0-12.0); Neutrophils # (auto) 1.6 uL; Neutrophils % (auto) 45.8 % (37.0-80.0); Platelet Count (auto) 319 10^3/uL (140-450); Red Blood Cells 2.32 10^6/uL (4.0-5.20)
--- NOTE | 2019-08-21 07:22 | NUR ---
Opening Shift Note Assumed care of patient, awake and alert, watching TV in bed. No S/S of distress/SOB or pain. Instructed on POC and to call for assist PRN, call light within reach and bed in lowest position.Will continue to monitor for changes Q1hr and PRN.
[2019-08-21 07:24] LABS: INR 1.05 (0.9-1.15)
[2019-08-21 07:34] LABS: Red Cell Distribution Width 23.4 % (11.8-14.3)
[2019-08-21 07:36] LABS: Calcium 8.3 mg/dL (8.5-10.1); Potassium 4.4 mmol/L (3.5-5.1)
[2019-08-21 07:41] LABS: BUN/Creatinine Ratio 19.4
[2019-08-21] MEDS: FUROSEMIDE 20 MG/2 ML VIAL IV SCH (11:03)
[2019-08-21] MEDS: AMIODARONE HCL 200 MG TAB PO SCH ×2 (11:04→23:11)
[2019-08-21] MEDS: ASPirin 81 mg TAB PO SCH (11:04)
[2019-08-21] MEDS: PANTOPRAZOLE 40 MG TAB PO SCH ×2 (11:04→23:11)
[2019-08-21] MEDS: FOLIC ACID 1 MG TAB PO SCH (11:04)
[2019-08-21] MEDS: MORPHINE SULF 15mg ER tab PO SCH ×2 (11:05→23:11)
--- NOTE | 2019-08-21 14:43 | NUR ---
NUTRITION CONSULT/ASSESSMENT NOTES Please refer to link notes of nutrition screen form filed under the intervention section of the plan of care for further details. Est. Needs: 1550 kcal to 1850 kcal (30-35 kcal/kgBW), 52 gms to 68 gms pro (1.0-1.3 gms/kgBW for wound healing). Will continue to monitor pertinent labs and reassess nutrient need prn Thank you this consult. Addendum: 08/21/19 at [address] Amended: Links added.
--- NOTE | 2019-08-21 16:00 | NUR ---
Dr. Nielsen bedside with patient discussing plan of care.
--- NOTE | 2019-08-21 19:17 | NUR ---
Gave report to night nurse, Ramona. Ramona is aware that a unit of PRBC have been ordered and 1 hour post blood transfusion, H & H needs to be ordered.
--- NOTE | 2019-08-21 20:01 | NUR ---
Respiratory note: PT RECIEVED ON NC2L. PT SLEEPING AT THIS TIME, NO RESP DISTRESS NOTED. SPO2 ON NC2L 98%, HR 75, RR 16. BS: DIM T/O. NO PRN TX INDICATED AT THIS TIME.
--- NOTE | 2019-08-21 23:30 | NUR ---
Blood transfusion starting. Vitals WNL. Afebrile. Will monitor closely for any adverse reactions.
[2019-08-22] VITALS (7 sets, daily range): BP systolic 118–139; BP diastolic 55–76
--- NOTE | 2019-08-22 02:00 | NUR ---
Assisted to bedside commode. Patient verbalized she had a BM early early afternoon today. Still need stool sample. PRBC's infusing, no adverse reactions noted at this time. Continuing to monitor. Call light within reach.
[2019-08-22] MEDS: MORPHINE SULF INJ 2 MG/ML SYRINGE 1ML IV PRN ×2 (02:10→07:08)
--- NOTE | 2019-08-22 03:05 | NUR ---
Blood transfusion complete. No adverse reactions noted. New order for H&H ordered for 0400. Patient resting comfortably watching TV. Call light within reach
[2019-08-22 05:01] LABS: Basophils # (auto) 0.1 uL; Eosinophils # (auto) 0.1 uL; Eosinophils % (auto) 4.3 % (0.0-7.0); Hematocrit 26.6 % (36.0-46.0); Hemoglobin 9.3 g/dL (12.2-16.2); Lymphocytes # (auto) 0.9 uL; Lymphocytes % (auto) 29.5 % (10.0-50.0); Mean Corpuscular Hemoglobin 31.9 pg (28.0-32.0); Mean Corpuscular Hgb Conc. 34.8 g/dL (32.0-36.0); Mean Corpuscular Volume 91.5 fL (80.0-100.0); Monocytes # (auto) 0.1 uL; Monocytes % (auto) 4.3 % (0.0-12.0); Neutrophils # (auto) 1.8 uL; Neutrophils % (auto) 59.9 % (37.0-80.0); Nucleated Red Blood Cells % 0.1 %; Platelet Count (auto) 323 10^3/uL (140-450); Red Blood Cells 2.91 10^6/uL (4.0-5.20)
[2019-08-22 05:17] LABS: Red Cell Distribution Width 20.7 % (11.8-14.3)
[2019-08-22 05:26] LABS: Potassium 4.5 mmol/L (3.5-5.1)
[2019-08-22 05:30] LABS: BUN/Creatinine Ratio 24.1; Calcium 8.6 mg/dL (8.5-10.1)
[2019-08-22] MEDS: CLINDAMYCIN 300MG IV 50 ML IV SCH (06:35)
--- NOTE | 2019-08-22 07:00 | NUR ---
Removed IV to R AC. Patient complaining of tenderness at insertion site. No inflammation noted. IV access to the left FA. Infusing antibiotics per order. Morphine given for pain of 8/10 to back. No distress noted. HGb up to 9.3 at this time. Assisted to commode x4 last through out shift. Clear yellow urine. 850 mls. urine output . Will endorse report to Lori ANGUIANO. Oxygen saturation 97% on 2 L. No SOB at rest, but patient requested oxygen be turned up to 3L since at home she is on 4-5liters NC. Informed RT as well.
--- NOTE | 2019-08-22 07:25 | NUR ---
Opening Shift Note Assumed care of patient, awake and alert in bed. No S/S of distress/SOB or pain. Instructed on POC and to call for assist PRN, call light on bed and bed in locked and lowest position. Will continue to monitor for changes Q1hr and PRN.
--- NOTE | 2019-08-22 09:05 | NUR ---
Respiratory note: MED NEB TX NOT INDICATED AT THIS TIME. SPO2 98 2L NC HR 81 RR 16 NO RESPIRATORY DISTRESS NOTED AT THIS TIME.
[2019-08-22] MEDS: ASPirin 81 mg TAB PO SCH (10:13)
[2019-08-22] MEDS: FUROSEMIDE 20 MG/2 ML VIAL IV SCH (10:13)
[2019-08-22] MEDS: FOLIC ACID 1 MG TAB PO SCH (10:14)
[2019-08-22] MEDS: AMIODARONE HCL 200 MG TAB PO SCH (10:14)
[2019-08-22] MEDS: PANTOPRAZOLE 40 MG TAB PO SCH (10:15)
[2019-08-22] MEDS: MORPHINE SULF 15mg ER tab PO SCH (10:33)
--- NOTE | 2019-08-22 11:18 | NUR ---
Dr. Nielsen bedside with patient discussing plan of care.
[2019-08-22] MEDS ORDERED: Ensure Enlive Chocolate 8oz Bottle PO SCH (12:00)
--- NOTE | 2019-08-22 12:56 | NUR ---
Discharge instructions given as ordered. Encourage to follow up with PMD as instructed. All questions and concerns addressed. Patient verbalized understanding. Medication reconciliation form completed and copy given to patient. No vaccines given. IV removed with catheter intact, pressure dressing applied. Telemetry unit returned to ICU.
--- NOTE | 2019-08-22 13:14 | NUR ---
Patient taken to vehicle via wheelchair with all personal belongings, accompanied by staff member and family member. No distress noted at time of departure.
== END 2019-08-22 13:14 | disposition home or self-care (01) | DRG 811 ==
LOC: ER 06:59 → TELE 07:00 → TELE-WESTW 12:40
PROVIDERS: ADMIT Nurse Practitioner Acute Care; ATTEND Internal Medicine
PROC: 30233N1 Transfusion of Nonautologous Red Blood Cells into Peripheral Vein, Percutaneous Approach (ICD-10-PCS; principal; 2019-08-19)
DX: D64.9 Anemia, unspecified (principal); I50.33 Acute on chronic diastolic (congestive) heart failure; L03.116 Cellulitis of left lower limb; F17.210 Nicotine dependence, cigarettes, uncomplicated; G89.29 Other chronic pain; I11.0 Hypertensive heart disease with heart failure; J44.9 Chronic obstructive pulmonary disease, unspecified; K21.9 Gastro-esophageal reflux disease without esophagitis; L89.159 Pressure ulcer of sacral region, unspecified stage; Z51.5 Encounter for palliative care; M54.9 Dorsalgia, unspecified; Z66 Do not resuscitate; I25.10 Atherosclerotic heart disease of native coronary artery without angina pectoris; Z79.82 Long term (current) use of aspirin; Z80.9 Family history of malignant neoplasm, unspecified; Z82.49 Family history of ischemic heart disease and other diseases of the circulatory system; Z86.73 Personal history of transient ischemic attack (TIA), and cerebral infarction without residual deficits; Z87.442 Personal history of urinary calculi; Z99.81 Dependence on supplemental oxygen; Z87.11 Personal history of peptic ulcer disease; Z82.5 Family history of asthma and other chronic lower respiratory diseases
CPT/HCPCS: 36415; 36430; 71045; 80048; 80053; 81001; 84443; 84484; 85014; 85018; 85025; 85610; 86850; 86900; 86901; 86920; 93005; 94640; 94761; 96374; 96375; 97116; 97163; 97530; G0378; J3490